=== PATIENT | male | born 1955 | race Caucasian/White ===

== ENCOUNTER 2019-08-13 07:36 | Day surgery (SDC) | payer OTHER ==
--- NOTE | 2019-08-09 15:54 | RAD REPORT ---
EXAM DESCRIPTION: RAD - Chest Pa And Lat (2 Views) - 08/09/2019 3:17 pm CLINICAL HISTORY: pre op, pending soft tissue mass removal from the back COMPARISON: No comparisons TECHNIQUE: Frontal and lateral views of the chest were obtained. FINDINGS: The lungs are clear. Heart size is normal and central vasculature is within normal limit s. No pleural effusion or pneumothorax seen. No acute bony finding noted. No aortic abnormality. IMPRESSION: No acute cardiopulmonary process.
[2019-08-09 16:09] LABS: Absolute Lymphocytes (CBC) 2.2 K/uL (0.7-4.9); Basophils % 0.9 % (0-1.3); Hematocrit 42.2 % (39.6-49.0); Lymphocytes % 29.3 % (15.3-44.8); MPV 8.5 fL (7.6-11.3); RBC Red Blood Cell Count 4.58 M/uL (4.33-5.43)
[2019-08-09 16:22] LABS: Potassium 3.9 mmol/L (3.5-5.1)
--- NOTE | 2019-08-10 13:49 | EKG ---
Test Date: 2019-08-09 Test Time: 15:06:52 Ammonium Hydroxide Operator: JIL MEASUREMENT RESULTS: Intervals: Rate: 61 NV: 140 QRSD: 90 QT: 398 QTc: 400 [place]: P: 17 NV: 140 QRS: 2 T: 10 INTERPRETIVE STATEMENTS: Normal sinus rhythm Possible Inferior infarct, age undetermined Possible Anterior infarct, age undetermined Abnormal ECG Compared to ECG 09/15/2005 15:22:02 Myocardial infarct finding now present Sinus bradycardia no longer present Electronically Signed On 08-10-19 13:46:03 RESEARCH COMPLIANCE SPECIALIST by Brigido Agarwal
[2019-08-13] MEDS ORDERED: Ringers Lactate 1,000 ML IV ONE (08:01)
[2019-08-13] MEDS: CEFAZOLIN/SWI 1gm 1 GM/10 ML SYR ONE ×2 (08:23→09:45)
[2019-08-13] MEDS ORDERED: LIDOCAINE 1% MPF 5 ML VIAL ONE (08:33)
[2019-08-13] MEDS ORDERED: propofoL 200 MG/20 ML VIAL IV ONE (08:33)
[2019-08-13] MEDS ORDERED: MIDAZOLAM HCL 2 MG/2 ML INJ ONE (08:33)
[2019-08-13] MEDS ORDERED: FENTANYL CITR 100 MCG/2 ML ONE (08:33)
[2019-08-13] MEDS ORDERED: KETOROLAC 30 MG/ML INJ ONE (09:54)
[2019-08-13] MEDS ORDERED: ONDANSETRON 4 MG/2 ML VIAL ONE (10:03)
--- NOTE | 2019-08-13 10:09 | P.BOP ---
Preoperative diagnosis: tender back subcutaneous mass Postoperative diagnosis: same Primary procedure: Excisional biopsy of tender back subcutaneous mass 4X4CM Secondary procedure: with layer closure Geophysical Computer: Faustina Alonzo) Estimated blood loss: <10cc Specimen: mass Findings: mass Anesthesia: General Complications: None Transferred to: Recovery Room Condition: Good
[2019-08-13 11:00] VITALS: BP 117/75; TEMP 96.9; O2SAT 100
--- NOTE | 2019-08-13 21:50 | DS ---
Date of Discharge: 08/13/2019 Diagnosis: Tender back subcutaneous mass. Procedure: Excisional biopsy of tender back subcutaneous mass, 4 x 4 cm with layered closure. Disposition: Home. Activity: As tolerated. No heavy lifting. Followup: Follow up in my office in 1 week. Call for appointment [phone]. Keep area dry for 48 ho urs, then may shower. Keep Steri-Strips intact. Medications: See orders. PRADEEP/MODMariposa Voice ID: [id number] Report ID: [id number]
--- NOTE | 2019-08-13 21:59 | OP ---
Date of Procedure: 08/13/2019 Surgeon: Lakhwinder Lopez MD Atmospheric Physics Professor: AURORA Oglesby. Preoperative Diagnosis: Tender back subcutaneous mass. Postoperative Diagnosis: Tender back subcutaneous mass. Procedure: Excisional biopsy of tender back subcutaneous mass, 4 x 4 cm with layered closure. Estimated Blood Loss: Less than 10 mL. Specimen: Mass. Anesthesia: General plus local. Indications: This is a case of a 63-year-old patient, who comes to us with a deep tender mass in the back, patient wants it excised. Benefits, alternatives, and risks of excision were fully explained, which include, but are not limited to infection, bleeding, damage to adjacent structures, anesthesia complication, recurrence, ND, and even . He also understands this may not relieve the symptoms . He might need more than one surgical intervention. He has redness back and forth in that area. Aneesh carlisle understands that if we find pus in that area, we might have to leave it open for secondary intentio n closure. He understood that area of concern was marked by me and the patient in the holding room. Description Of Procedure: Patient was brought to the operating room, placed in supine position. Ane sthesia was done without complication. Patient was placed in lateral decubitus position with proper protection. Back was prepped and draped in a sterile fashion. A time-out was called. A wedge incis ion was made in the skin all the way down to deep subcutaneous tissue. This goes all the way down to fascia of the muscle, but does not penetrate the muscle. Mass was excised and the area was irrigate d. Then, we proceeded to close the area with 3-0 chromic deep inside, then 3-0 chromic in the more s ubcutaneous area in layered closures, and then the skin was close last with 3-0 nylon. Sponge count and instrument counts were correct. Hemostasis was obtained before closure. Patient was sent to [facility] in stable condition. HM/MODL Voice ID: [id number] Report ID: [id number]
== END 2019-08-13 11:30 | disposition home or self-care (01) ==
LOC: OR 07:36
PROVIDERS: ATTEND Surgery
PROC: 0JB70ZZ Excision of Back Subcutaneous Tissue and Fascia, Open Approach (ICD-10-PCS; principal; 2019-08-13 09:45)
DX: L72.0 Epidermal cyst (principal); F32.9 Major depressive disorder, single episode, unspecified; Z88.6 Allergy status to analgesic agent; Z80.3 Family history of malignant neoplasm of breast; Z82.49 Family history of ischemic heart disease and other diseases of the circulatory system
CPT/HCPCS: 93005; 85025; 80048; 36415; 88304; 71046; 11404; J2704; J2250; J3010; J0690; J7120; J2405; 88305

== ENCOUNTER 2020-11-27 14:27 | Emergency (ER) | payer SELFPAY ==
--- NOTE | 2020-11-27 21:58 | ER ---
Nurse's Notes [facility] Name: Micha Rodgers Age: 65 yrs Sex: Male : 1955 Arrival Date: 11/27/2020 Time: 14:30 Bed Waiting Private MD: Diagnosis: Presentation: 11/27 14:37 Chief complaint: Patient states: Insect bite to R hand 4th digit for 1 week. Saw his ll1 doctors [place], started cephalexin Tuesday night. Site is getting more red and swollen since Tuesday. No fever. Coronavirus screen: Client denies travel out of the [place] in the last 14 days. At this time, the client does not indicate any symptoms associated with coronavirus-19. Ebola Screen: Patient denies travel to an Ebola-affected area in the 21 days before illness onset. Initial Sepsis Screen: Does the patient meet any 2 criteria? No. Patient's initial sepsis screen is negative. Does the patient have a suspected source of infection? Yes: Skin breakdown/wound. Risk Assessment: Do you want to hurt yourself or someone else? Patient reports no desire to harm self or others. Onset of symptoms was November 20, 2020. 14:37 Method Of Arrival: Ambulatory ll1 14:37 Acuity: TAHIRA 3 ll1 Historical: - Allergies: 14:42 Codeine; ll1 - PMHx: 14:42 None; ll1 - PSHx: 14:42 foot SX-toe joint; ll1 - Immunization history:: Last tetanus immunization: unknown, Flu vaccine is up to date. - Social history:: Smoking status: Patient denies any tobacco usage or history of. Assessment: 19:34 Reassessment: called from the lobby, no answer. ca1 Vital Signs: 14:37 BP 119 / 84; Pulse 98; Resp 17; Temp 97.4; Pulse Ox 96% ; Weight 77.11 kg; Height 5 ft. ll1 7 in. (170.18 cm); Pain 7/10; 14:37 Body Mass Index 26.63 (77.11 kg, 170.18 cm) ll1 ED Course: 14:30 Patient arrived in ED. as 14:41 Triage completed. ll1 14:42 Arm band placed on. ll1 Administered Medications: No medications were administered Outcome: 21:57 Patient left the ED. iw Signatures: Louise Lopez Irene, RN RN iw Wilda Watts, RN RN ca1 Jacob Castorena RN RN ll1
[2020-11-27 22:19] VITALS: BP 119/84; TEMP 97.4; O2SAT 96
== END 2020-11-27 21:57 | disposition left against medical advice (07) ==
LOC: ER 14:27
DX: Z53.21 Procedure and treatment not carried out due to patient leaving prior to being seen by health care provider (principal)
CPT/HCPCS: 99281